=== PATIENT | female | born 1960 | race Two or more races ===

== ENCOUNTER 2025-07-12 03:39 | Inpatient (IN) | payer OTHER ==
[2025-07-12] VITALS (7 sets, daily range): BP systolic 106–135; BP diastolic 50–90; PULSE 77–95; RESP 18–20; TEMP 36.2–36.6; O2SAT 95–100
[~2025-07-12] VITALS: Ht 162.6 cm; Wt 83.0 kg
[2025-07-12] MEDS: ONDANSETRON HCL 4MG/2ML INJ IV ONE (04:21)
[2025-07-12] MEDS: SODIUM CHLORIDE 0.9% 1,000 ML IV ONE (04:22)
[2025-07-12] MEDS: MORPHINE SULFATE 4 MG/ML INJ (FOR IV/IM USE) IV ONE (04:22)
[2025-07-12 04:27] LABS: BASOPHILS % 0.3 % (0.0-2.0); EOSINOPHILS % 1.0 % (0.0-5.0); HEMATOCRIT. 40.7 % (36.0-48.0); HEMOGLOBIN. 13.0 g/dL (12.0-16.0); LYMPHOCYTES % 11.7 % (20.0-50.0); MEAN PLATELET VOLUME 7.7 fl (7.4-10.4); MONOCYTES % 3.4 % (2.0-8.0); NEUTROPHILS % 83.6 % (40.0-76.0); PLATELET 255 x1000/uL (130-400); RED BLOOD CELL COUNT 5.09 mill/uL (4.2-5.4); RED CELL DISTRIBUTION WIDTH 15.7 % (11.6-14.6)
[2025-07-12 04:41] LABS: CREATININE 0.7 mg/dL (0.6-1.0); UREA NITROGEN BLOOD 16 mg/dL (9-23)
[2025-07-12 04:42] LABS: TROPONIN I HIGH SENSITIVITY < 4 ng/L (3.0-34)
[2025-07-12] MEDS ORDERED: IOHEXOL-350 100 ML BOTTLE ONE (06:55)
[2025-07-12] MEDS ORDERED: MAGNESIUM/ALUMINUM HYDROXIDE/SIMETHICONE 30ML UDC PO PRN (09:15)
[2025-07-12] MEDS ORDERED: ONDANSETRON HCL 4MG/2ML INJ IV PRN (09:15)
[2025-07-12] MEDS ORDERED: ACETAMINOPHEN 325MG TABLET PO PRN (09:15)
[2025-07-12] MEDS ORDERED: NALOXONE HCL 0.4MG/ML VIAL IV PRN (09:15)
[2025-07-12] MEDS ORDERED: CLONIDINE 0.1MG TABLET PO PRN (09:15)
[2025-07-12] MEDS: ENOXAPARIN 40MG/0.4ML SYR SUBCUT SCH (10:13)
[2025-07-12] MEDS: PANTOPRAZOLE SODIUM 40 MG/VIAL IV SCH (10:13)
[2025-07-12] MEDS: MORPHINE SULFATE 2 MG/ML INJ (NOT FOR IM USE) IV PRN (10:39)
[2025-07-12] MEDS ORDERED: METF-416 PO (15:05)
[2025-07-12] MEDS ORDERED: DEXTROSE 50% WATER 50ML SYRINGE IV PRN (16:30)
[2025-07-12] MEDS: BLOOD SUGAR DIAGNOSTIC STRIP TEST SCH (17:10)
[2025-07-12 20:04] LABS: TROPONIN I HIGH SENSITIVITY < 4 ng/L (3.0-34)
[2025-07-12] MEDS ORDERED: ZOLPIDEM TARTRATE 5MG TABLET PO PRN (21:00)
[2025-07-12] MEDS: INSULIN LISPRO 100 UNITS/ML SUBCUT SCH (21:27)
[2025-07-12] MEDS: HYDROCODONE/ACETAMINOPHEN 5/325MG TABLET PO PRN (23:00)
[2025-07-12 23:36] LABS: CLARITY URINE CLEAR (CLEAR); COLOR URINE YELLOW (YELLOW); GLUCOSE URINE 3+ (NEGATIVE); KETONES URINE 2+ (NEGATIVE); LEUKOCYTE ESTERASE URINE NEGATIVE (NEGATIVE); NITRITE URINE NEGATIVE (NEGATIVE); OCCULT BLOOD URINE NEGATIVE (NEGATIVE); PH URINE 5.5 (4.5-8.0); PROTEIN URINE NEGATIVE (NEGATIVE); SPECIFIC GRAVITY URINE 1.041 (1.005-1.030); UROBILINOGEN URINE 0.2 E.U./dL (0.2-1.0)
[2025-07-12 23:51] LABS: BACTERIA URINE 1+; RBC URINE NONE SEEN /hpf (0-2); SQUAMOUS EPITHELIAL CELL URINE 1+ /lpf (RARE/1+)
[2025-07-12 23:56] LABS: TROPONIN I HIGH SENSITIVITY 4 ng/L (3.0-34)
[2025-07-13] VITALS: BP 143/74; PULSE 68; RESP 20; TEMP 36.1; O2SAT 96
[2025-07-13 00:07] LABS: *AMPHETAMINES SCREEN URINE NEGATIVE (NEGATIVE); *BENZODIAZEPINES SCREEN URINE NEGATIVE (NEGATIVE)
[2025-07-13 00:08] LABS: *BARBITURATES SCREEN URINE NEGATIVE (NEGATIVE); *COCAINE SCREEN URINE NEGATIVE (NEGATIVE); CANNABINOID URINE SCREEN NEGATIVE (NEGATIVE); ECSTASY MDMA SCREEN URINE NEGATIVE (NEGATIVE); METHADONE URINE SCREEN NEGATIVE (NEGATIVE); OPIATES URINE SCREEN NEGATIVE (NEGATIVE); PHENCYCLIDINE URINE SCREEN NEGATIVE (NEGATIVE)
[2025-07-13 04:00] VITALS: BP 140/60; PULSE 89; RESP 20; TEMP 36.1; O2SAT 97
[2025-07-13 06:19] LABS: BASOPHILS % 0.2 % (0.0-2.0); EOSINOPHILS % 0.7 % (0.0-5.0); HEMATOCRIT. 38.5 % (36.0-48.0); HEMOGLOBIN. 12.4 g/dL (12.0-16.0); LYMPHOCYTES % 18.0 % (20.0-50.0); MEAN PLATELET VOLUME 8.0 fl (7.4-10.4); MONOCYTES % 5.9 % (2.0-8.0); NEUTROPHILS % 75.2 % (40.0-76.0); PLATELET 220 x1000/uL (130-400); RED BLOOD CELL COUNT 4.80 mill/uL (4.2-5.4); RED CELL DISTRIBUTION WIDTH 15.4 % (11.6-14.6)
[2025-07-13 06:32] LABS: CREATININE 0.7 mg/dL (0.6-1.0)
[2025-07-13 06:33] LABS: LDL CHOLESTEROL 87 mg/dL (5-100); TRIGLYCERIDE 333 mg/dL (0-150); UREA NITROGEN BLOOD 16 mg/dL (9-23)
[2025-07-13 08:00] VITALS: BP 129/91; PULSE 88; RESP 20; TEMP 37.1; O2SAT 98
[2025-07-13] MEDS: KETOROLAC 15MG/ML VIAL IV PRN (08:16)
[2025-07-13] MEDS ORDERED: HYDR-4001 MT (10:56)
[2025-07-13] MEDS ORDERED: IBUP-2030 MT (10:56)
[2025-07-13 12:00] VITALS: BP 152/84; PULSE 79; RESP 20; TEMP 36.5; O2SAT 96
[2025-07-13] MEDS ORDERED: DEXTROSE 50% WATER 50ML SYRINGE IV PRN (12:00)
[2025-07-13 12:13] VITALS: BP 130/76; PULSE 80; RESP 18; TEMP 97.8
[2025-07-13] MEDS ORDERED: INSULIN LISPRO 100 UNITS/ML SUBCUT SCH (12:40)
[2025-07-13] MEDS: INSULIN LISPRO 100 UNITS/ML SUBCUT NR (13:27)
[2025-07-13] MEDS ORDERED: LIDOCAINE 5% PATCH TOP SCH (14:15)
== END 2025-07-13 14:40 | disposition home or self-care (01) | DRG 206 ==
LOC: ER 03:39 → 8WST 04:42 → EDBEDREQTM 04:58 → EDBEDREQ 04:58 → ENRESERV 05:18 → MICUSO 13:00 → 8WST 13:03
PROVIDERS: ADMIT Internal Medicine; ATTEND Internal Medicine
DX: M94.0 Chondrocostal junction syndrome [Tietze] (principal); E11.65 Type 2 diabetes mellitus with hyperglycemia; I10 Essential (primary) hypertension
CPT/HCPCS: 36415; 71275; 74174; 80048; 80061; 80305; 81003; 82550; 82962; 83036; 84443; 84484; 85025; 86850; 86900; 93005; 93306; 93970; 97162; 97166; 99291; A4606; J1650; J1815; J1885; J2270; J2405; J2470; J7030; Q9967